=== PATIENT | male | born 1980 | race Caucasian/White ===

== ENCOUNTER 2016-10-14 13:26 | Emergency (ER) | payer OTHER ==
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
[2016-10-14] MEDS ORDERED: TENIVAC IM ONE (17:06)
[2016-10-14] MEDS ORDERED: NORCO 5/325 PO ONE (17:06)
[2016-10-14] MEDS ORDERED: BOOSTRIX IM ONE ×2 (17:09→20:50)
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
[2016-10-14] MEDS ORDERED: MORPHINE IV ONE (17:32)
[2016-10-14] MEDS ORDERED: ZOFRAN IV ONE (17:32)
[2016-10-14] MEDS ORDERED: MORPHINE ONE (17:36)
[2016-10-14 21:18] VITALS: BP 126/77
== END 2016-10-14 21:35 | disposition short-term general hospital (02) ==
LOC: ED 13:26
DX: S02.640A Fracture of ramus of mandible, unspecified side, initial encounter for closed fracture (principal); S02.2XXA Fracture of nasal bones, initial encounter for closed fracture; Z72.0 Tobacco use; Y04.2XXA Assault by strike against or bumped into by another person, initial encounter; Y93.89 Activity, other specified; Y99.9 Unspecified external cause status; Y92.89 Other specified places as the place of occurrence of the external cause
CPT/HCPCS: 70450; 70486; 90471; 90715; 96374; 96375; 99285; J2270; J2405